=== PATIENT | female | born 1980 | race Caucasian/White ===

== ENCOUNTER 2016-09-10 12:15 | Emergency (ER) | payer OTHER ==
[~2016-09-10] VITALS: Ht 170.1 cm; Wt 77.1 kg
[~2016-09-10 12:15] MED LIST: AUGMENTIN 875 M1 TAB PO; MOTRIN800 MG PO; TRAMADOL HCL50 MG PO
[2016-09-10 12:20] VITALS: BP 124/81
[2016-09-10] MEDS ORDERED: VALTREX500 MG PO (12:25)
== END 2016-09-10 15:55 | disposition home or self-care (01) ==
LOC: ED 12:15
DX: S90.31XA Contusion of right foot, initial encounter (principal); Z88.1 Allergy status to other antibiotic agents; Z88.2 Allergy status to sulfonamides; Z79.899 Other long term (current) drug therapy; W51.XXXA Accidental striking against or bumped into by another person, initial encounter; Y93.89 Activity, other specified; Y92.89 Other specified places as the place of occurrence of the external cause; Y99.8 Other external cause status

== ENCOUNTER 2019-11-22 16:20 | Emergency (ER) | payer SELFPAY ==
[~2019-11-22] VITALS: Wt 63.5 kg
[~2019-11-22 16:20] MED LIST changes: +VALTREX500 MG PO
[2019-11-22 16:29] VITALS: BP 130/85
== END 2019-11-22 20:15 | disposition home or self-care (01) ==
LOC: ED 16:20
DX: S91.311A Laceration without foreign body, right foot, initial encounter (principal); Z88.2 Allergy status to sulfonamides; Z88.8 Allergy status to other drugs, medicaments and biological substances; X58.XXXA Exposure to other specified factors, initial encounter; Y93.89 Activity, other specified; Y92.89 Other specified places as the place of occurrence of the external cause; Y99.8 Other external cause status

== ENCOUNTER → 2020-02-12 | Outpatient (CLI) | payer SELFPAY | END | disposition home or self-care (01) | LOC: COVID19 11:21 | PROVIDERS: ATTEND Internal Medicine | DX: U07.1 COVID-19 (principal) ==

== ENCOUNTER → 2023-03-20 | Outpatient (CLI) | payer OTHER | END | disposition home or self-care (01) | LOC: RAD 12:09 | PROVIDERS: ATTEND Nurse Practitioner | DX: M48.07 Spinal stenosis, lumbosacral region (principal); M25.511 Pain in right shoulder; M54.6 Pain in thoracic spine; M54.2 Cervicalgia; M43.17 Spondylolisthesis, lumbosacral region; M47.812 Spondylosis without myelopathy or radiculopathy, cervical region; M41.84 Other forms of scoliosis, thoracic region ==

== ENCOUNTER → 2023-04-02 | Outpatient (CLI) | payer OTHER | END | disposition home or self-care (01) | LOC: MAMMO 08:30 | PROVIDERS: ATTEND Nurse Practitioner | DX: Z12.31 Encounter for screening mammogram for malignant neoplasm of breast (principal) ==

== ENCOUNTER 2024-07-02 20:34 | Emergency (ER) | payer MEDICAID ==
[~2024-07-02] VITALS: Ht 170.1 cm; Wt 65.8 kg
[2024-07-02 20:49] VITALS: BP 126/82
[2024-07-02] MEDS ORDERED: HYDROXYZINE HCL25 MG PO (20:51)
[2024-07-02] MEDS ORDERED: BUSPAR15 MG PO (20:51)
[2024-07-02] MEDS ORDERED: PAROXETINE20 MG PO (20:52)
[2024-07-02 21:08] LABS: BILIRUBIN Negative (Negative); BLOOD 3+ (Negative); CLARITY Cloudy (Clear); COLOR Yellow (Yellow); GLUCOSE Negative (Negative); KETONE Negative (Negative); LEUKO ESTERASE 3+ (Negative); NITRITE Negative (Negative); PH 5.5 (4.5-8.0); SPECIFIC GRAVITY 1.015 (1.001-1.030); UROBILINOGEN 0.2 E.U./dl (0.0-1.0)
[2024-07-02 21:21] LABS: BACTERIA 3+; RBC 21-30 rbc/hpf (0-2); WBC TNTC wbc/hpf (0-5)
[2024-07-02] MEDS ORDERED: CIPRO500 MG PO (21:22)
[2024-07-02] MEDS ORDERED: Ciprofloxacin Hydrochloride 500 MG TAB PO ONE ×3 (21:25)
== END 2024-07-02 21:50 | disposition home or self-care (01) ==
LOC: ED 20:34
PROVIDERS: Nurse Practitioner Family
DX: N39.0 Urinary tract infection, site not specified (principal); Z88.2 Allergy status to sulfonamides; Z88.1 Allergy status to other antibiotic agents; Z79.899 Other long term (current) drug therapy